=== PATIENT | female | born 1955 | race Caucasian/White ===

== ENCOUNTER 2020-07-04 16:07 | Emergency (ER) | payer BC ==
[2020-07-04 19:22] LABS: HEMOGLOBIN 13.9 gm/dl (12.3-15.3); RED BLOOD COUNT 4.74 M/UL (4.00-5.10); WHITE BLOOD COUNT 12.6 K/UL (4.5-11.0)
[2020-07-04 19:40] LABS: BUN/CREATININE RATIO 18 (0-10)
[2020-07-04] MEDS ORDERED: AUGMENTIN 875-1 EACH PO (23:33)
[2020-07-04] MEDS ORDERED: FLAGYL500 MG PO (23:33)
[2020-07-04] MEDS ORDERED: ZOFRAN ODT 4 MG4 MG SL (23:33)
[2020-07-04] MEDS ORDERED: LEVOFLOXACIN750 MG PO (23:51)
== END 2020-07-05 00:02 | disposition home or self-care (01) ==
LOC: ER1 16:07
PROVIDERS: Physician Assistant Medical
DX: K57.32 Diverticulitis of large intestine without perforation or abscess without bleeding (principal); Z87.442 Personal history of urinary calculi; Z90.49 Acquired absence of other specified parts of digestive tract; Z90.710 Acquired absence of both cervix and uterus; Z87.891 Personal history of nicotine dependence; Z88.6 Allergy status to analgesic agent; Z88.0 Allergy status to penicillin
CPT/HCPCS: 80053; 81001; 83605; 83690; 85025; 87040; 96365; 96375; 99284; J0696; J1885; J2405; J7030; Q9967

== ENCOUNTER → 2020-09-02 | Day surgery (SDC) | payer BC ==
[~2020-09-02] MED LIST: AUGMENTIN 875-1 EACH PO; FLAGYL500 MG PO; LEVOFLOXACIN750 MG PO; ZOFRAN ODT 4 MG4 MG SL
== END | disposition home or self-care (01) ==
LOC: OR 06:22
DX: D12.8 Benign neoplasm of rectum (principal); K63.5 Polyp of colon; K57.30 Diverticulosis of large intestine without perforation or abscess without bleeding; K64.1 Second degree hemorrhoids; I10 Essential (primary) hypertension; E78.5 Hyperlipidemia, unspecified; K21.9 Gastro-esophageal reflux disease without esophagitis; E66.9 Obesity, unspecified; Z68.33 Body mass index [BMI] 33.0-33.9, adult; Z87.891 Personal history of nicotine dependence; Z88.0 Allergy status to penicillin; Z88.6 Allergy status to analgesic agent; Z88.1 Allergy status to other antibiotic agents
CPT/HCPCS: J2704; J7040